=== PATIENT | male | born 1950 | race Caucasian/White ===

== ENCOUNTER 2018-01-04 10:21 | Day surgery (SDC) | payer BC ==
[~2018-01-04 10:21] MED LIST: CIPROFLOXACIN 400 MG in D5W 200 ML IVPB; DEXAMETHASONE 4 MG/ML 1 ML INJ; LIDOCAINE 2% (SDV) 5 ML INJ; ONDANSETRON 4 MG INJ
[2018-01-04] MEDS ORDERED: PROPOFOL 20 ML (14:04)
[2018-01-04] MEDS ORDERED: ROCURONIUM 50 MG INJ (14:06)
[2018-01-04] MEDS ORDERED: LABETALOL HCL 20MG INJ (14:07)
[2018-01-04] MEDS ORDERED: SUGAMMADEX SODIUM 200 MG/2 ML VIAL IV (14:50)
[2018-01-04] MEDS ORDERED: FENTAnyl 50 MCG/ML VIAL IV ×3 (15:30)
[2018-01-04] MEDS ORDERED: ONDANSETRON 4 MG INJ IV (15:30)
[2018-01-04] MEDS ORDERED: EPHEDrine SULFATE 50 MG/5 ML SYG IV (15:30)
[2018-01-04] MEDS ORDERED: MEPERIDINE 25 MG INJ IV (15:30)
[2018-01-04] MEDS ORDERED: KETOROLAC 30 MG INJ IV (15:30)
[2018-01-04] MEDS ORDERED: DIPHENHYDRAMINE 50 MG INJ IV (15:30)
[2018-01-04] MEDS ORDERED: HYDROmorphONE 1 MG/5 ML IV SYRINGE IV ×3 (15:30)
[2018-01-04] MEDS ORDERED: ALBUTEROL 0.083% (NEB) 2.5 MG/3 ML AMP HHN (15:30)
[2018-01-04] MEDS ORDERED: OXYCODONE/ACETAMINOPHEN (5/325) TAB PO ×2 (15:30)
[2018-01-04] MEDS ORDERED: hydrALAzine 20 MG INJ IV (15:30)
[2018-01-04] MEDS ORDERED: LABETALOL HCL 20MG INJ IV (15:30)
[2018-01-04] MEDS ORDERED: METOCLOPRAMIDE 10 MG INJ IV (15:30)
== END 2018-01-04 17:01 | disposition home or self-care (01) ==
LOC: SDS 10:21
DX: N40.1 Benign prostatic hyperplasia with lower urinary tract symptoms (principal); R33.9 Retention of urine, unspecified
CPT/HCPCS: 52441

== ENCOUNTER 2018-01-25 08:58 | Observation (INO) | payer BC ==
[2018-01-25 10:11] LABS: ADD MAN DIFF? NO
[2018-01-25 10:25] LABS: BASOPHILS % 0.6 % (0.0-2.0); EOSINOPHILS # 0.1 10^3/ul (0.0-0.5); EOSINOPHILS % 2.2 % (0.0-7.0); HEMATOCRIT 40.4 % (42.0-52.0); HEMOGLOBIN 13.4 g/dl (14.0-18.0); LYMPHOCYTES # 2.3 10^3/ul (0.8-2.9); LYMPHOCYTES % 44.9 % (15.0-51.0); MEAN CORPUSCULAR HEMOGLOBIN 30.5 pg (29.0-33.0); MEAN CORPUSCULAR HGB CONC 33.2 g/dl (32.0-37.0); MEAN PLATELET VOLUME 9.8 fl (7.4-10.4); MONOCYTE # 0.4 10^3/ul (0.3-0.9); MONOCYTES % 8.5 % (0.0-11.0); NEUTROPHIL # 2.2 10^3/ul (1.6-7.5); NEUTROPHILS % 43.6 % (39.0-77.0); PLATELET COUNT 272 10^3/UL (140-415); RED BLOOD COUNT 4.39 10^6/ul (4.70-6.10); RED CELL DISTRIBUTION WIDTH 12.3 % (11.5-14.5)
[2018-01-25 10:49] LABS: ANION GAP 11 (8-16); BLOOD UREA NITROGEN 13 mg/dl (7-20); CALCIUM 9.2 mg/dl (8.4-10.2); CARBON DIOXIDE 26 mmol/L (21-31); CHLORIDE 107 mmol/L (97-110); CREATININE 0.84 mg/dl (0.61-1.24); GLUCOSE 104 mg/dl (70-220); POTASSIUM 4.1 mmol/L (3.5-5.1); SODIUM 140 mmol/L (135-144)
[2018-01-25 11:02] LABS: INR 1.01; PROTIME 13.4 Sec (11.9-14.9)
[2018-01-25 11:03] LABS: PARTIAL THROMBOPLASTIN TIME 31.2 Sec (25.0-35.0)
[2018-01-25] MEDS ORDERED: IODIXANOL LOCM 100 ML BTL (11:21)
[2018-01-25] MEDS ORDERED: HEPARIN 1000 UNITS/ML 10 ML INJ (11:21)
[2018-01-25] MEDS ORDERED: FENTAnyl 50 MCG/ML VIAL (11:21)
[2018-01-25] MEDS ORDERED: LIDOCAINE 1% (MDV) 20 ML INJ (11:21)
[2018-01-25] MEDS ORDERED: MIDAZOLAM 1 MG/ML 2 ML INJ (11:21)
[2018-01-25] MEDS ORDERED: VERAPAMIL 5 MG INJ (11:21)
[2018-01-25] MEDS ORDERED: NITROGLYCERIN (IC) 100 MCG/ML INJ (11:22)
[2018-01-25] MEDS ORDERED: AL HYDROX/MG HYDROX/SIMETH 30 ML CUP PO (13:00)
[2018-01-25] MEDS ORDERED: ONDANSETRON 4 MG INJ IV (13:00)
[2018-01-25] MEDS ORDERED: ACETAMINOPHEN 325 MG TAB PO (13:00)
[2018-01-25] MEDS: SOD CHLORIDE 0.9% 1,000 ML IV (18:40)
[2018-01-25] MEDS: ATORVASTATIN 40 MG TAB PO (21:45)
[2018-01-26] MEDS: ASPIRIN 81 MG TAB PO (09:09)
[2018-01-26] MEDS ORDERED: CEFAZOLIN 2 GM/50 ML (PMX) 50 ML IVPB (13:30)
[2018-01-26 16:05] LABS: ADD UMIC NO; UR ASCORBIC ACID NEGATIVE (NEGATIVE); UR BILIRUBIN (Dip) NEGATIVE (NEGATIVE); UR BLOOD (Dip) NEGATIVE (NEGATIVE); UR CLARITY CLEAR (CLEAR); UR COLOR YELLOW (YELLOW); UR GLUCOSE (Dip) NEGATIVE (NEGATIVE); UR KETONES (Dip) NEGATIVE (NEGATIVE); UR LEUKOCYTE ESTERASE (Dip) NEGATIVE Leu/ul (NEGATIVE); UR NITRITE (Dip) NEGATIVE (NEGATIVE); UR SPECIFIC GRAVITY (Dip) 1.011 (1.003-1.030); UR TOTAL PROTEIN (Dip) NEGATIVE (NEGATIVE); UR UROBILINOGEN (Dip) NEGATIVE (NEGATIVE)
[2018-01-26] MEDS ORDERED: TAMSULOSIN (SR) 0.4 MG CAP PO (22:00)
[2018-01-27] MEDS ORDERED: ASPIRIN 600 MG SUPP PR (06:00)
[2018-01-27] MEDS ORDERED: NORepinephrine 8MG/250 ML (PMX 250 ML IV (06:00)
[2018-01-27] MEDS ORDERED: MILRINONE LACTATE 2 MG in SOD CHLORIDE 0.9% 50 ML IV (06:00)
[2018-01-27] MEDS ORDERED: PHENYLephrine 20MG IN 250 ML 250 ML IV (06:00)
[2018-01-27] MEDS ORDERED: INSULIN HUMAN REGULAR 100 UNIT in SOD CHLORIDE 0.9% 99 ML IVPB (06:00)
[2018-01-27] MEDS ORDERED: EPINEPHrine 4 MG in DEXTROSE 5% 246 ML IV (06:00)
[2018-01-27] MEDS ORDERED: HEPARIN (10000 UNITS/ML) 10,000 UNIT, MILRINONE LACTATE 10 MG in SOD CHLORIDE 0.9% 1,00... SC (06:00)
[2018-01-27] MEDS ORDERED: DOCUSATE SODIUM 250 MG PO (09:00)
== END 2018-01-26 20:34 | disposition left against medical advice (07) ==
LOC: CCL 08:58 → SDS 08:58 → TEL 18:00 → CCL 16:59 → TEL 16:59
DX: I25.10 Atherosclerotic heart disease of native coronary artery without angina pectoris (principal); I10 Essential (primary) hypertension; E78.5 Hyperlipidemia, unspecified; N40.0 Benign prostatic hyperplasia without lower urinary tract symptoms; Z79.82 Long term (current) use of aspirin
CPT/HCPCS: 71045; 80048; 81003; 85025; 85610; 85730; 86850; 86900; 86901; 86920; 93005; 93306; 93458; 93880; 99217; G0378

== ENCOUNTER 2018-06-13 06:13 | Inpatient (IN) | payer BC ==
[~2018-06-13 06:13] MED LIST changes: -CIPROFLOXACIN 400 MG in D5W 200 ML IVPB; -DEXAMETHASONE 4 MG/ML 1 ML INJ; +HEPARIN 1000 UNITS/ML 10 ML INJ; -LIDOCAINE 2% (SDV) 5 ML INJ; -ONDANSETRON 4 MG INJ; +PAPAVERINE 60 MG INJ; +VANCOMYCIN 1 GM INJ
[2018-06-13] MEDS: PHENYLephrine 20MG IN 250 ML 250 ML IV (07:00)
[2018-06-13] MEDS ORDERED: NITROGLYCERIN 50 MG/D5W 250 ML BTL (07:00)
[2018-06-13] MEDS ORDERED: ALBUMIN HUMAN 25% 100 ML INJ (07:00)
[2018-06-13] MEDS ORDERED: PROPOFOL 1000 MG INJ (07:00)
[2018-06-13] MEDS: HEPARIN 1000 UNITS/ML 10 ML INJ IRR (07:00)
[2018-06-13] MEDS ORDERED: ROCURONIUM 50 MG INJ ×2 (07:00→07:26)
[2018-06-13] MEDS: HEPARIN (10000 UNITS/ML) 10,000 UNIT, MILRINONE LACTATE 10 MG in SOD CHLORIDE 0.9% 1,00... SC (07:00)
[2018-06-13] MEDS ORDERED: DOBUTamine/D5W 1 MG/ML 250 ML DRIP (07:00)
[2018-06-13] MEDS: ASPIRIN 600 MG SUPP PR (07:00)
[2018-06-13] MEDS ORDERED: ALBUMIN HUMAN 5% 250 ML INJ (07:00)
[2018-06-13] MEDS: VANCOMYCIN 500MG INJ IMPLANTED (07:00)
[2018-06-13] MEDS ORDERED: ETOMIDATE 20 MG INJ (07:00)
[2018-06-13] MEDS: PAPAVERINE 60 MG INJ IRR (07:00)
[2018-06-13] MEDS: EPINEPHrine 4 MG in DEXTROSE 5% 246 ML IV (07:00)
[2018-06-13] MEDS: NORepinephrine 8MG/250 ML (PMX 250 ML IV (07:00)
[2018-06-13] MEDS ORDERED: MILRINONE LACTATE 20 MG/D5W 100 ML BAG (07:00)
[2018-06-13] MEDS ORDERED: PAPAVERINE 60 MG INJ (07:14)
[2018-06-13] MEDS ORDERED: LIDOCAINE 2% (SDV) 5 ML INJ (07:26)
[2018-06-13] MEDS ORDERED: MIDAZOLAM 5 ML ×2 (07:26)
[2018-06-13] MEDS ORDERED: SUCCINYLCHOLINE CHLORIDE 100 MG/5 ML SYG IV (07:26)
[2018-06-13] MEDS ORDERED: IPRATROPIUM (NEB) 0.5 MG/2.5 ML AMP HHN (07:30)
[2018-06-13] MEDS ORDERED: hydrALAzine 20 MG INJ IV (07:30)
[2018-06-13] MEDS ORDERED: MIDAZOLAM 1 MG/ML 2 ML INJ IV (07:30)
[2018-06-13] MEDS ORDERED: ONDANSETRON 4 MG INJ IV (07:30)
[2018-06-13] MEDS ORDERED: morphine 2 MG INJ IV ×3 (07:30→14:30)
[2018-06-13] MEDS ORDERED: morphine 10 MG INJ IV (07:30)
[2018-06-13] MEDS ORDERED: HYDROmorphONE 0.5 MG/0.5 ML SYG IV ×4 (07:30→14:30)
[2018-06-13] MEDS ORDERED: LEVALBUTEROL (NEB) 1.25 MG/0.5 ML AMP HHN (07:30)
[2018-06-13] MEDS ORDERED: DIPHENHYDRAMINE 50 MG INJ IV (07:30)
[2018-06-13] MEDS ORDERED: FENTAnyl 50 MCG/ML VIAL IV (07:30)
[2018-06-13] MEDS ORDERED: HALOPERIDOL 5 MG INJ IV (07:30)
[2018-06-13] MEDS ORDERED: LORAZEPAM 2 MG INJ IV (07:30)
[2018-06-13] MEDS ORDERED: LABETALOL HCL 20MG INJ IV (07:30)
[2018-06-13] MEDS ORDERED: HEPARIN 1000 UNITS/ML 10 ML INJ ×2 (07:33→07:41)
[2018-06-13] MEDS ORDERED: ALBUMIN HUMAN 25% 300 ML (07:40)
[2018-06-13] MEDS ORDERED: AMINOCAPROIC ACID 5 GM INJ ×2 (07:41→07:46)
[2018-06-13] MEDS ORDERED: CA CHLORIDE 10% 10 ML SYRINGE (07:41)
[2018-06-13] MEDS ORDERED: LIDOCAINE 100 MG SYRINGE (07:42)
[2018-06-13] MEDS ORDERED: POTASSIUM CHLORIDE 40 MEQ INJ (07:42)
[2018-06-13] MEDS ORDERED: MAGNESIUM SULFATE (MG) 50% 10 ML INJ (07:43)
[2018-06-13] MEDS ORDERED: PHENYLephrine 10 MG INJ (07:43)
[2018-06-13] MEDS ORDERED: PHENYLephrine (100 MCG/ML) 5ML SYG ×2 (07:43→09:42)
[2018-06-13] MEDS ORDERED: NA BICARBONATE 8.4% 50 ML SYG ×2 (07:44→10:39)
[2018-06-13] MEDS ORDERED: MANNITOL 20% 500 ML (07:45)
[2018-06-13] MEDS ORDERED: PROTAMINE 250 MG INJ ×2 (07:46→12:12)
[2018-06-13] MEDS ORDERED: CEFAZOLIN 1 GM INJ (09:02)
[2018-06-13] MEDS ORDERED: morphine 10 MG INJ (09:19)
[2018-06-13] MEDS ORDERED: AMIODARONE 150 MG INJ (11:17)
[2018-06-13] MEDS ORDERED: DEXTROSE 50% 50 ML SYRINGE IV ×2 (13:30)
[2018-06-13] MEDS ORDERED: NORepinephrine 8MG/250 ML (PMX 250 ML IV (13:30)
[2018-06-13] MEDS ORDERED: FENTAnyl 50 MCG/ML VIAL (13:58)
[2018-06-13] MEDS: FENTAnyl 50 MCG/ML VIAL IV ×2 (13:59→14:41)
[2018-06-13 14:14] LABS: AADO2 Arterial 265.6 mmHg (7.0-24.0); Arterial Base Excess -1.1 mmol/L (-3.0-3); Arterial Blood Gas Oxygen Sat 97.1 mmHG (95.0-98.0); Arterial COHb 0.3 % (0.0-3.0); Arterial Fraction of Oxyhgb 96.5 % (93.0-99.0); Arterial HCO3 24.5 mmol/L (22.0-26.0); Arterial MetHb 0.3 % (0.0-1.5); Arterial pCO2 44.7 mmhg (35-45); MODE VENT - AC; Site A-Line
[2018-06-13 14:15] LABS: ADD MAN DIFF? NO
[2018-06-13 14:16] LABS: WHITE BLOOD COUNT 10.4 10^3/ul (4.8-10.8)
[2018-06-13 14:16] LABS: BASOPHILS % 0.3 % (0.0-2.0); EOSINOPHILS % 0.3 % (0.0-7.0); HEMATOCRIT 30.1 % (42.0-52.0); LYMPHOCYTES # 1.8 10^3/ul (0.8-2.9); MEAN CORPUSCULAR HEMOGLOBIN 30.5 pg (29.0-33.0); MEAN CORPUSCULAR HGB CONC 33.2 g/dl (32.0-37.0); MEAN CORPUSCULAR VOLUME 91.8 fl (82.0-101.0); MEAN PLATELET VOLUME 10.4 fl (7.4-10.4); MONOCYTE # 0.6 10^3/ul (0.3-0.9); MONOCYTES % 5.8 % (0.0-11.0); NEUTROPHIL # 7.9 10^3/ul (1.6-7.5); PLATELET COUNT 148 10^3/UL (140-415); RED BLOOD COUNT 3.28 10^6/ul (4.70-6.10); RED CELL DISTRIBUTION WIDTH 12.6 % (11.5-14.5)
[2018-06-13 14:17] LABS: PLATELET COUNT 144 10^3/UL (140-415)
[2018-06-13] MEDS ORDERED: MAGNESIUM SULFATE 1 GM/D5W 100 ML IVPB (14:30)
[2018-06-13] MEDS ORDERED: OXYCODONE/ACETAMINOPHEN (5/325) TAB PO ×2 (14:30)
[2018-06-13 14:36] LABS: ALANINE AMINOTRANSFERASE 28 IU/L (13-69); ALBUMIN 4.1 g/dl (3.3-4.9); ALBUMIN/GLOBULIN RATIO 2.05; ALKALINE PHOSPHATASE 32 IU/L (42-121); ANION GAP 12 (5-13); ASPARTATE AMINO TRANSFERASE 25 IU/L (15-46); BILIRUBIN,INDIRECT 0.7 mg/dl (0-1.1); BILIRUBIN,TOTAL 0.7 mg/dl (0.2-1.3); BLOOD UREA NITROGEN 15 mg/dl (7-20); CALCIUM 11.1 mg/dl (8.4-10.2); CARBON DIOXIDE 25 mmol/L (21-31); CHLORIDE 107 mmol/L (97-110); Estimated GFR > 60 mL/min (>60); GLUCOSE 113 mg/dl (70-220); POTASSIUM 4.3 mmol/L (3.5-5.1); SODIUM 144 mmol/L (135-144); TOTAL PROTEIN 6.1 g/dl (6.1-8.1)
[2018-06-13] MEDS: MILRINONE LACTATE 2 MG in SOD CHLORIDE 0.9% 50 ML IV (14:36)
[2018-06-13] MEDS: DOBUTamine/D5W 1 MG/ML DRIP 250 ML IV (14:36)
[2018-06-13] MEDS: INSULIN HUMAN REGULAR 100 UNIT in SOD CHLORIDE 0.9% 99 ML IVPB (14:37)
[2018-06-13] MEDS: NITROGLYCERIN 50 MG/D5W (PMX) 250 ML IV (14:38)
[2018-06-13] MEDS: ACCU-CHEK XX ×10 (14:39→22:53)
[2018-06-13 14:40] LABS: INR 1.36; PARTIAL THROMBOPLASTIN TIME 35.5 Sec (23.0-35.0); PROTIME 16.9 Sec (11.9-14.9); PT RATIO 1.3
[2018-06-13 14:41] LABS: THROMBIN TIME 18.2 SEC (13.8-19.1)
[2018-06-13] MEDS: MILRINONE LACTATE 100 ML IV (14:50)
[2018-06-13] MEDS: PROPOFOL 100 ML IV (14:51)
[2018-06-13] MEDS: HYDROmorphONE 0.5 MG/0.5 ML SYG IV ×4 (15:12→23:07)
[2018-06-13] MEDS: POTASSIUM CHLORIDE 50 ML IVPB ×2 (15:19→19:32)
[2018-06-13] MEDS: POTASSIUM CHLORIDE 40 MEQ, CALCIUM CHLORIDE 10% 1 GM in DEXTROSE 5%-0.225% NACL 1,000 ML IV (15:21)
[2018-06-13] MEDS: CEFAZOLIN 1 GM/50 ML (PMX) 50 ML IVPB ×2 (16:44→21:56)
[2018-06-13 17:49] LABS: AADO2 Arterial 137.7 mmHg (7.0-24.0); Arterial Base Excess -0.2 mmol/L (-3.0-3); Arterial Blood Gas Oxygen Sat 96.7 mmHG (95.0-98.0); Arterial COHb 0.3 % (0.0-3.0); Arterial HCO3 24.7 mmol/L (22.0-26.0); Arterial MetHb 0.4 % (0.0-1.5); Arterial pCO2 41.1 mmhg (35-45); Blood Gas PS 10; MODE MASK - CPAP; Site A-Line
[2018-06-13 18:33] LABS: ADD MAN DIFF? NO
[2018-06-13 18:35] LABS: BASOPHILS % 0.2 % (0.0-2.0); EOSINOPHILS % 0.1 % (0.0-7.0); HEMATOCRIT 29.9 % (42.0-52.0); HEMOGLOBIN 9.7 g/dl (14.0-18.0); LYMPHOCYTES # 0.8 10^3/ul (0.8-2.9); LYMPHOCYTES % 8.8 % (15.0-51.0); MEAN CORPUSCULAR HGB CONC 32.4 g/dl (32.0-37.0); MEAN CORPUSCULAR VOLUME 92.6 fl (82.0-101.0); MEAN PLATELET VOLUME 10.5 fl (7.4-10.4); MONOCYTE # 0.9 10^3/ul (0.3-0.9); MONOCYTES % 9.9 % (0.0-11.0); NEUTROPHIL # 7.1 10^3/ul (1.6-7.5); NEUTROPHILS % 80.8 % (39.0-77.0); PLATELET COUNT 156 10^3/UL (140-415); RED BLOOD COUNT 3.23 10^6/ul (4.70-6.10); RED CELL DISTRIBUTION WIDTH 12.7 % (11.5-14.5)
[2018-06-13 18:35] LABS: WHITE BLOOD COUNT 8.8 10^3/ul (4.8-10.8)
[2018-06-13] MEDS: ALBUMIN HUMAN 5% 250 ML IV (18:45)
[2018-06-13 18:54] LABS: ANION GAP 11 (5-13); BLOOD UREA NITROGEN 15 mg/dl (7-20); CALCIUM 10.1 mg/dl (8.4-10.2); CARBON DIOXIDE 26 mmol/L (21-31); CHLORIDE 105 mmol/L (97-110); CREATININE 0.97 mg/dl (0.61-1.24); Estimated GFR > 60 mL/min (>60); GLUCOSE 166 mg/dl (70-220); MAGNESIUM 2.2 mg/dl (1.7-2.5); POTASSIUM 4.3 mmol/L (3.5-5.1); SODIUM 142 mmol/L (135-144)
[2018-06-13] MEDS ORDERED: ACETAMINOPHEN 650 MG SUPP PR (19:30)
[2018-06-13] MEDS: ASPIRIN 325 MG TAB PO (20:00)
[2018-06-13] MEDS: FAMOTIDINE 20 MG TAB PO (20:35)
[2018-06-13] MEDS: ATORVASTATIN 40 MG TAB PO (20:35)
[2018-06-13] MEDS: ACETAMINOPHEN 325 MG TAB PO (20:39)
[2018-06-14] MEDS: ACCU-CHEK XX ×17 (00:11→16:59)
[2018-06-14 01:00] LABS: ANION GAP 12 (5-13); BLOOD UREA NITROGEN 14 mg/dl (7-20); CALCIUM 9.6 mg/dl (8.4-10.2); CARBON DIOXIDE 26 mmol/L (21-31); CHLORIDE 104 mmol/L (97-110); Estimated GFR > 60 mL/min (>60); GLUCOSE 151 mg/dl (70-220); MAGNESIUM 1.9 mg/dl (1.7-2.5); PHOSPHORUS 4.3 mg/dl (2.5-4.9); POTASSIUM 4.7 mmol/L (3.5-5.1); SODIUM 142 mmol/L (135-144)
[2018-06-14] MEDS: HYDROmorphONE 0.5 MG/0.5 ML SYG IV ×5 (02:32→22:12)
[2018-06-14] MEDS: PROPOFOL 100 ML IV ×2 (03:00→15:00)
[2018-06-14 04:54] LABS: ADD MAN DIFF? NO
[2018-06-14 04:59] LABS: WHITE BLOOD COUNT 7.8 10^3/ul (4.8-10.8)
[2018-06-14 05:00] LABS: Allen Test ACCEPTAB; Arterial Base Excess -1.7 mmol/L (-3.0-3); Arterial Blood Gas Oxygen Sat 96.1 mmHG (95.0-98.0); Arterial COHb 0.1 % (0.0-3.0); Arterial Fraction of Oxyhgb 95.9 % (93.0-99.0); Arterial HCO3 22.7 mmol/L (22.0-26.0); Arterial MetHb 0.1 % (0.0-1.5); Arterial pCO2 37.2 mmhg (35-45); BASOPHILS % 0.3 % (0.0-2.0); HEMOGLOBIN 9.8 g/dl (14.0-18.0); LYMPHOCYTES # 0.8 10^3/ul (0.8-2.9); LYMPHOCYTES % 9.6 % (15.0-51.0); MEAN CORPUSCULAR HEMOGLOBIN 30.4 pg (29.0-33.0); MEAN CORPUSCULAR HGB CONC 32.7 g/dl (32.0-37.0); MEAN CORPUSCULAR VOLUME 93.2 fl (82.0-101.0); MEAN PLATELET VOLUME 10.5 fl (7.4-10.4); MODE NASAL CANNULA; MONOCYTES % 12.9 % (0.0-11.0); NEUTROPHILS % 77.1 % (39.0-77.0); PLATELET COUNT 155 10^3/UL (140-415); RED BLOOD COUNT 3.22 10^6/ul (4.70-6.10); Site Right Radial
[2018-06-14 05:18] LABS: INR 1.26; PROTIME 15.9 Sec (11.9-14.9); PT RATIO 1.2
[2018-06-14 05:19] LABS: PARTIAL THROMBOPLASTIN TIME 37.3 Sec (23.0-35.0)
[2018-06-14 05:21] LABS: ANION GAP 10 (5-13); BLOOD UREA NITROGEN 15 mg/dl (7-20); CALCIUM 9.8 mg/dl (8.4-10.2); CARBON DIOXIDE 26 mmol/L (21-31); CHLORIDE 106 mmol/L (97-110); CREATININE 0.91 mg/dl (0.61-1.24); Estimated GFR > 60 mL/min (>60); GLUCOSE 150 mg/dl (70-220); POTASSIUM 4.4 mmol/L (3.5-5.1); SODIUM 142 mmol/L (135-144)
[2018-06-14] MEDS: CEFAZOLIN 1 GM/50 ML (PMX) 50 ML IVPB (05:27)
[2018-06-14] MEDS: POTASSIUM CHLORIDE 50 ML IVPB (06:10)
[2018-06-14] MEDS: INSULIN HUMAN REGULAR 100 UNIT in SOD CHLORIDE 0.9% 99 ML IV (07:00)
[2018-06-14] MEDS: POTASSIUM CHLORIDE 40 MEQ, CALCIUM CHLORIDE 10% 1 GM in DEXTROSE 5%-0.225% NACL 1,000 ML IV (08:10)
[2018-06-14] MEDS: METOPROLOL 25 MG TAB PO ×2 (09:08→21:04)
[2018-06-14] MEDS: FAMOTIDINE 20 MG TAB PO ×2 (09:08→21:04)
[2018-06-14] MEDS: ASPIRIN 81 MG TAB PO (09:08)
[2018-06-14] MEDS: OXYCODONE/ACETAMINOPHEN (5/325) TAB PO ×2 (13:23→21:04)
[2018-06-14] MEDS: CEPASTAT LOZENGE MT ×2 (17:00→18:13)
[2018-06-14] MEDS: TAMSULOSIN (SR) 0.4 MG CAP PO (21:04)
[2018-06-14] MEDS: ATORVASTATIN 40 MG TAB PO (21:04)
[2018-06-15] MEDS: PROPOFOL 100 ML IV ×2 (03:00→14:55)
[2018-06-15 05:21] LABS: ADD MAN DIFF? NO
[2018-06-15 05:28] LABS: WHITE BLOOD COUNT 10.2 10^3/ul (4.8-10.8)
[2018-06-15 05:28] LABS: BASOPHILS % 0.3 % (0.0-2.0); EOSINOPHILS # 0.1 10^3/ul (0.0-0.5); EOSINOPHILS % 0.8 % (0.0-7.0); HEMATOCRIT 29.6 % (42.0-52.0); HEMOGLOBIN 9.8 g/dl (14.0-18.0); LYMPHOCYTES # 1.4 10^3/ul (0.8-2.9); LYMPHOCYTES % 13.5 % (15.0-51.0); MEAN CORPUSCULAR HEMOGLOBIN 30.7 pg (29.0-33.0); MEAN CORPUSCULAR HGB CONC 33.1 g/dl (32.0-37.0); MEAN CORPUSCULAR VOLUME 92.8 fl (82.0-101.0); MEAN PLATELET VOLUME 11.2 fl (7.4-10.4); NEUTROPHIL # 7.6 10^3/ul (1.6-7.5); PLATELET COUNT 168 10^3/UL (140-415); RED BLOOD COUNT 3.19 10^6/ul (4.70-6.10); RED CELL DISTRIBUTION WIDTH 12.7 % (11.5-14.5)
[2018-06-15 05:55] LABS: ANION GAP 10 (5-13); BLOOD UREA NITROGEN 18 mg/dl (7-20); CALCIUM 9.2 mg/dl (8.4-10.2); CARBON DIOXIDE 27 mmol/L (21-31); CHLORIDE 99 mmol/L (97-110); CREATININE 0.81 mg/dl (0.61-1.24); Estimated GFR > 60 mL/min (>60); GLUCOSE 139 mg/dl (70-220); SODIUM 136 mmol/L (135-144)
[2018-06-15] MEDS: ASPIRIN 81 MG TAB PO (08:35)
[2018-06-15] MEDS: FAMOTIDINE 20 MG TAB PO ×2 (08:36→22:24)
[2018-06-15] MEDS: OXYCODONE/ACETAMINOPHEN (5/325) TAB PO ×3 (08:36→18:50)
[2018-06-15] MEDS: METOPROLOL 25 MG TAB PO ×2 (08:37→22:25)
[2018-06-15] MEDS: ENOXAPARIN 40 MG/0.4 ML SYG SC (08:46)
[2018-06-15] MEDS: FUROSEMIDE 20 MG INJ IV (15:35)
[2018-06-15] MEDS: ATORVASTATIN 40 MG TAB PO (22:24)
[2018-06-15] MEDS: TAMSULOSIN (SR) 0.4 MG CAP PO (22:24)
[2018-06-16] MEDS: PROPOFOL 100 ML IV (03:00)
[2018-06-16] MEDS: OXYCODONE/ACETAMINOPHEN (5/325) TAB PO (06:01)
[2018-06-16 06:49] LABS: ADD MAN DIFF? NO
[2018-06-16 06:55] LABS: BASOPHILS % 0.4 % (0.0-2.0); EOSINOPHILS # 0.2 10^3/ul (0.0-0.5); EOSINOPHILS % 2.7 % (0.0-7.0); HEMATOCRIT 30.5 % (42.0-52.0); HEMOGLOBIN 10.1 g/dl (14.0-18.0); LYMPHOCYTES # 1.5 10^3/ul (0.8-2.9); LYMPHOCYTES % 16.7 % (15.0-51.0); MEAN CORPUSCULAR HEMOGLOBIN 30.5 pg (29.0-33.0); MEAN CORPUSCULAR HGB CONC 33.1 g/dl (32.0-37.0); MEAN CORPUSCULAR VOLUME 92.1 fl (82.0-101.0); MEAN PLATELET VOLUME 10.4 fl (7.4-10.4); MONOCYTE # 0.9 10^3/ul (0.3-0.9); MONOCYTES % 10.3 % (0.0-11.0); NEUTROPHIL # 6.2 10^3/ul (1.6-7.5); NEUTROPHILS % 69.5 % (39.0-77.0); PLATELET COUNT 191 10^3/UL (140-415); RED BLOOD COUNT 3.31 10^6/ul (4.70-6.10); RED CELL DISTRIBUTION WIDTH 12.8 % (11.5-14.5)
[2018-06-16 06:55] LABS: WHITE BLOOD COUNT 8.9 10^3/ul (4.8-10.8)
[2018-06-16 07:29] LABS: ANION GAP 4 (5-13); BLOOD UREA NITROGEN 18 mg/dl (7-20); CARBON DIOXIDE 28 mmol/L (21-31); CHLORIDE 105 mmol/L (97-110); CREATININE 0.94 mg/dl (0.61-1.24); Estimated GFR > 60 mL/min (>60); GLUCOSE 133 mg/dl (70-220); MAGNESIUM 2.1 mg/dl (1.7-2.5); SODIUM 137 mmol/L (135-144)
[2018-06-16] MEDS: HYDROmorphONE 0.5 MG/0.5 ML SYG IV ×2 (08:33→23:06)
[2018-06-16] MEDS: FAMOTIDINE 20 MG TAB PO ×2 (08:42→21:14)
[2018-06-16] MEDS: ASPIRIN 81 MG TAB PO (08:43)
[2018-06-16] MEDS: METOPROLOL 25 MG TAB PO ×2 (08:43→21:15)
[2018-06-16] MEDS: FUROSEMIDE 20 MG INJ IV (08:44)
[2018-06-16] MEDS: ENOXAPARIN 40 MG/0.4 ML SYG SC (09:13)
[2018-06-16] MEDS: AMIODARONE 150MG/D5W BOLUS 100 ML IV (11:36)
[2018-06-16] MEDS: AMIODARONE 900 MG in DEXTROSE 5% 482 ML IV ×2 (12:13→18:08)
[2018-06-16] MEDS: ACETAMINOPHEN 325 MG TAB PO (15:24)
[2018-06-16] MEDS: TAMSULOSIN (SR) 0.4 MG CAP PO (21:14)
[2018-06-16] MEDS: ATORVASTATIN 40 MG TAB PO (21:14)
[2018-06-17] MEDS: ZOLPIDEM 5 MG TAB PO (00:01)
[2018-06-17] MEDS: HYDROmorphONE 0.5 MG/0.5 ML SYG IV (05:55)
[2018-06-17] MEDS: FAMOTIDINE 20 MG TAB PO ×2 (08:26→21:30)
[2018-06-17] MEDS: ASPIRIN 81 MG TAB PO (08:26)
[2018-06-17] MEDS: FUROSEMIDE 20 MG INJ IV ×2 (08:27→09:58)
[2018-06-17] MEDS: METOPROLOL 25 MG TAB PO ×2 (08:27→21:31)
[2018-06-17] MEDS: ENOXAPARIN 40 MG/0.4 ML SYG SC (08:41)
[2018-06-17] MEDS: OXYCODONE/ACETAMINOPHEN (5/325) TAB PO ×2 (10:19→21:30)
[2018-06-17] MEDS: AMIODARONE 900 MG in DEXTROSE 5% 482 ML IV (14:06)
[2018-06-17] MEDS: DOCUSATE SODIUM 100 MG CAP PO (21:30)
[2018-06-17] MEDS: TAMSULOSIN (SR) 0.4 MG CAP PO (21:30)
[2018-06-17] MEDS: ATORVASTATIN 40 MG TAB PO (21:30)
[2018-06-18] MEDS: OXYCODONE/ACETAMINOPHEN (5/325) TAB PO (05:50)
[2018-06-18 06:19] LABS: ADD MAN DIFF? NO
[2018-06-18 06:36] LABS: BASOPHIL # 0.1 10^3/ul (0.0-0.1); BASOPHILS % 0.7 % (0.0-2.0); EOSINOPHILS # 0.3 10^3/ul (0.0-0.5); EOSINOPHILS % 3.5 % (0.0-7.0); HEMATOCRIT 31.2 % (42.0-52.0); HEMOGLOBIN 10.2 g/dl (14.0-18.0); LYMPHOCYTES % 25.9 % (15.0-51.0); MEAN CORPUSCULAR HEMOGLOBIN 30.4 pg (29.0-33.0); MEAN CORPUSCULAR HGB CONC 32.7 g/dl (32.0-37.0); MEAN CORPUSCULAR VOLUME 92.9 fl (82.0-101.0); MEAN PLATELET VOLUME 10.3 fl (7.4-10.4); MONOCYTE # 0.9 10^3/ul (0.3-0.9); MONOCYTES % 11.6 % (0.0-11.0); NEUTROPHIL # 4.4 10^3/ul (1.6-7.5); PLATELET COUNT 319 10^3/UL (140-415); RED BLOOD COUNT 3.36 10^6/ul (4.70-6.10)
[2018-06-18 06:36] LABS: WHITE BLOOD COUNT 7.6 10^3/ul (4.8-10.8)
[2018-06-18 06:54] LABS: ALANINE AMINOTRANSFERASE 90 IU/L (13-69); ALBUMIN 3.7 g/dl (3.3-4.9); ALBUMIN/GLOBULIN RATIO 1.15; ALKALINE PHOSPHATASE 70 IU/L (42-121); ANION GAP 5 (5-13); ASPARTATE AMINO TRANSFERASE 62 IU/L (15-46); BILIRUBIN,INDIRECT 0.8 mg/dl (0-1.1); BILIRUBIN,TOTAL 0.8 mg/dl (0.2-1.3); BLOOD UREA NITROGEN 15 mg/dl (7-20); CALCIUM 9.1 mg/dl (8.4-10.2); CARBON DIOXIDE 28 mmol/L (21-31); CHLORIDE 107 mmol/L (97-110); CREATININE 0.99 mg/dl (0.61-1.24); Estimated GFR > 60 mL/min (>60); GLUCOSE 116 mg/dl (70-220); MAGNESIUM 2.4 mg/dl (1.7-2.5); SODIUM 140 mmol/L (135-144); TOTAL PROTEIN 6.9 g/dl (6.1-8.1)
[2018-06-18 06:59] LABS: B-TYPE NATRIURETIC PEPTIDE 997 PG/ML (0-125)
[2018-06-18 07:13] LABS: FREE T4 (FREE THYROXINE) 1.51 ng/dl (0.78-2.44)
[2018-06-18] MEDS: DOCUSATE SODIUM 100 MG CAP PO ×2 (08:22→22:23)
[2018-06-18] MEDS: METOPROLOL 25 MG TAB PO ×2 (08:22→22:22)
[2018-06-18] MEDS: ASPIRIN 81 MG TAB PO (08:22)
[2018-06-18] MEDS: FAMOTIDINE 20 MG TAB PO ×2 (08:22→22:23)
[2018-06-18] MEDS: FUROSEMIDE 20 MG INJ IV (08:23)
[2018-06-18] MEDS: ENOXAPARIN 40 MG/0.4 ML SYG SC (08:32)
[2018-06-18] MEDS ORDERED: MECLIZINE 25 MG TAB PO (11:30)
[2018-06-18] MEDS: ACETAMINOPHEN 325 MG TAB PO (22:22)
[2018-06-18] MEDS: LORAZEPAM 1 MG TAB PO (22:23)
[2018-06-18] MEDS: TAMSULOSIN (SR) 0.4 MG CAP PO (22:23)
[2018-06-18] MEDS: ATORVASTATIN 40 MG TAB PO (22:23)
[2018-06-19] MEDS: DOCUSATE SODIUM 100 MG CAP PO ×2 (08:16→21:01)
[2018-06-19] MEDS: FAMOTIDINE 20 MG TAB PO ×2 (08:16→21:01)
[2018-06-19] MEDS: METOPROLOL 25 MG TAB PO ×2 (08:16→21:00)
[2018-06-19] MEDS: ASPIRIN 81 MG TAB PO (08:17)
[2018-06-19] MEDS: FUROSEMIDE 20 MG INJ IV (08:17)
[2018-06-19] MEDS: ENOXAPARIN 40 MG/0.4 ML SYG SC (08:48)
[2018-06-19] MEDS: ATORVASTATIN 40 MG TAB PO (21:00)
[2018-06-19] MEDS: TAMSULOSIN (SR) 0.4 MG CAP PO (21:01)
[2018-06-19] MEDS: AMIODARONE 200 MG TAB PO (21:01)
[2018-06-20] MEDS: ZOLPIDEM 5 MG TAB PO (02:01)
[2018-06-20] MEDS: DOCUSATE SODIUM 100 MG CAP PO (08:13)
[2018-06-20] MEDS: METOPROLOL 25 MG TAB PO (08:13)
[2018-06-20] MEDS: FAMOTIDINE 20 MG TAB PO (08:13)
[2018-06-20] MEDS: ASPIRIN 81 MG TAB PO (08:14)
[2018-06-20] MEDS: AMIODARONE 200 MG TAB PO (08:14)
[2018-06-20] MEDS: FUROSEMIDE 40 MG TAB PO (08:14)
[2018-06-20] MEDS: ENOXAPARIN 40 MG/0.4 ML SYG SC (08:27)
[2018-06-20 08:49] LABS: ADD MAN DIFF? NO
[2018-06-20 08:53] LABS: WHITE BLOOD COUNT 9.4 10^3/ul (4.8-10.8)
[2018-06-20 08:53] LABS: BASOPHILS % 0.4 % (0.0-2.0); EOSINOPHILS # 0.1 10^3/ul (0.0-0.5); EOSINOPHILS % 1.3 % (0.0-7.0); HEMATOCRIT 32.5 % (42.0-52.0); HEMOGLOBIN 10.5 g/dl (14.0-18.0); LYMPHOCYTES # 1.9 10^3/ul (0.8-2.9); LYMPHOCYTES % 20.5 % (15.0-51.0); MEAN CORPUSCULAR HEMOGLOBIN 29.8 pg (29.0-33.0); MEAN CORPUSCULAR HGB CONC 32.3 g/dl (32.0-37.0); MEAN CORPUSCULAR VOLUME 92.3 fl (82.0-101.0); MEAN PLATELET VOLUME 9.8 fl (7.4-10.4); MONOCYTE # 0.9 10^3/ul (0.3-0.9); MONOCYTES % 9.4 % (0.0-11.0); NEUTROPHIL # 6.4 10^3/ul (1.6-7.5); NEUTROPHILS % 67.8 % (39.0-77.0); PLATELET COUNT 447 10^3/UL (140-415); RED BLOOD COUNT 3.52 10^6/ul (4.70-6.10); RED CELL DISTRIBUTION WIDTH 12.9 % (11.5-14.5)
[2018-06-20 09:20] LABS: ALANINE AMINOTRANSFERASE 128 IU/L (13-69); ALBUMIN 3.7 g/dl (3.3-4.9); ALBUMIN/GLOBULIN RATIO 1.12; ALKALINE PHOSPHATASE 73 IU/L (42-121); ANION GAP 6 (5-13); ASPARTATE AMINO TRANSFERASE 70 IU/L (15-46); BILIRUBIN,INDIRECT 0.8 mg/dl (0-1.1); BILIRUBIN,TOTAL 0.8 mg/dl (0.2-1.3); BLOOD UREA NITROGEN 12 mg/dl (7-20); CALCIUM 9.1 mg/dl (8.4-10.2); CARBON DIOXIDE 25 mmol/L (21-31); CHLORIDE 106 mmol/L (97-110); Estimated GFR > 60 mL/min (>60); GLUCOSE 115 mg/dl (70-220); SODIUM 137 mmol/L (135-144)
[2018-06-20] MEDS ORDERED: ATORVASTATIN 20 MG TAB PO (21:00)
[2018-06-21] MEDS ORDERED: ASPIRIN 81 MG TAB PO (09:00)
[2018-06-21] MEDS ORDERED: FUROSEMIDE 40 MG TAB PO (09:00)
== END 2018-06-20 18:20 | disposition home health service (06) | DRG 236 ==
LOC: REC 06:13 → TEL 06-15 18:27 → ICU 13:00
PROVIDERS: Thoracic Surgery (Cardiothoracic Vascular Surgery)
PROC: 021109W Bypass Coronary Artery, Two Arteries from Aorta with Autologous Venous Tissue, Open Approach (ICD-10-PCS; principal; 2018-06-13 07:30)
PROC: 02100Z9 Bypass Coronary Artery, One Artery from Left Internal Mammary, Open Approach (ICD-10-PCS; 2018-06-13 07:30)
PROC: 06BP4ZZ Excision of Right Saphenous Vein, Percutaneous Endoscopic Approach (ICD-10-PCS; 2018-06-13 07:30)
PROC: 5A1221Z Performance of Cardiac Output, Continuous (ICD-10-PCS; 2018-06-13 07:30)
DX: I25.119 Atherosclerotic heart disease of native coronary artery with unspecified angina pectoris (principal); I10 Essential (primary) hypertension; E78.5 Hyperlipidemia, unspecified; I48.91 Unspecified atrial fibrillation
CPT/HCPCS: 36600; 71045; 80048; 80053; 82803; 82962; 83735; 83880; 84100; 84439; 84443; 85025; 85049; 85384; 85610; 85670; 85730; 86850; 86900; 86901; 86920; 87081; 88304; 88311; 93005; 93306; 93312; 93320; 93325; 94002; 97116; 97163; 97530